=== PATIENT | male | born 1945 | race Caucasian/White ===

== ENCOUNTER 2021-08-15 01:11 | Inpatient (IN) | payer MEDICARE, OTHER ==
[~2021-08-15] VITALS: Ht 165.1 cm; Wt 115.2 kg
[~2021-08-15 01:11] MED LIST: ACETAMINOPHEN325 MG PO; AMITRIPTYLINE100 MG PO; BUSPIRONE HCL10 MG PO; CERTAGEN1 EACH PO; COL-RITE100 MG PO; COZAAR50 MG PO; DULERA 200 MCG8.8 GM INH; FEOSOL325 MG PO; FISH OIL 1,2001 EAC1 PO; FLOMAX0.4 MG PO; IMODIUM2 MG PO; K-DUR20 MEQ PO; LASIX40 MG PO; LAXATIVE OF CHOICE; LOPID600 MG PO; MEDROL 4MG DOSEP4 MG PO; MUCINEX 600MG600 MG PO; NORVASC 10MG TA10 MG PO; PERCOCET 5-3251 EACH PO; PRILOSEC20 MG PO; REQUIP4 MG PO; VENTOLIN HFA IN18 GM INH
[2021-08-15 02:03] LABS: BASOPHIL 0.2 % (0-2); EOSINOPHIL 1.1 % (0-7); HCT 30.6 % (42.0-52.0); HGB 9.5 g/dl (13.2-18.0); MCH 26.9 pg (25.0-31.0); MCV 86.7 fL (78.0-100.0); MPV 9.8 fL (6.0-9.5); NEUTROPHIL 85.1 % (41-80); NRBC 0; PLT 291 K/uL (150-400); RBC 3.53 M/uL (4.70-6.00); WBC 18.2 K/uL (4.0-10.5)
[2021-08-15 02:11] LABS: BILIRUBIN NEGATIVE (NEGATIVE); BLOOD TRACE-INTACT Ery/uL (NEGATIVE); CLARITY CLEAR (CLEAR); COLOR YELLOW (YELLOW); GLUCOSE (U) NORMAL (NORMAL); LEUKOCYTES NEGATIVE Leu/uL (NEGATIVE); NITRITE NEGATIVE (NEGATIVE); PROTEIN NEGATIVE (NEGATIVE); SPECIFIC GRAVITY 1.015 (1.001-1.030); UROBILINOGEN 0.2 mg/dL (0.2-1.0); pH 6.5 (5.0-9.0)
[2021-08-15 02:22] LABS: ALBUMIN 3.4 g/dL (3.4-5.0); BILIRUBIN - TOTAL 0.2 mg/dL (0.2-1.0); BUN/CREAT RATIO (CALC) 27.5 RATIO; CREATININE 1.53 mg/dL (0.67-1.17); GLOBULIN (CALCULATION) 3.6 g/dL; POTASSIUM 4.4 mmol/L (3.5-5.1)
[2021-08-15 02:25] LABS: LACTIC ACID 2.6 mmol/L (0.4-1.9)
[2021-08-15 02:39] LABS: CORONAVIRUS 2019 SARS-COV-2 NEGATIVE (NEGATIVE); INFLUENZA A NAA NEGATIVE (NEGATIVE)
[2021-08-15 09:14] LABS: HCT 31.2 % (42.0-52.0); HGB 9.5 g/dl (13.2-18.0); MCH 27.4 pg (25.0-31.0); MCHC 30.4 g/dL (32.0-36.0); MCV 89.9 fL (78.0-100.0); MPV 9.8 fL (6.0-9.5); RBC 3.47 M/uL (4.70-6.00); RDW 15.1 % (11.5-14.0); WBC 24.8 K/uL (4.0-10.5)
[2021-08-15 09:37] LABS: ALBUMIN 3.2 g/dL (3.4-5.0); BILIRUBIN - TOTAL 0.3 mg/dL (0.2-1.0); BUN/CREAT RATIO (CALC) 23.2 RATIO; CREATININE 1.68 mg/dL (0.67-1.17); GLOBULIN (CALCULATION) 3.7 g/dL; MAGNESIUM 2.1 mg/dL (1.8-2.4); PHOSPHORUS 3.9 mg/dL (2.6-4.7); TOTAL PROTEIN 6.9 g/dL (6.4-8.2)
[2021-08-16 07:00] LABS: BASOPHIL 0.4 % (0-2); EOSINOPHIL 3.1 % (0-7); HCT 30.2 % (42.0-52.0); LYMPHOCYTE 12.3 % (15-48); MCH 26.6 pg (25.0-31.0); MCHC 29.8 g/dL (32.0-36.0); MCV 89.3 fL (78.0-100.0); MONOCYTE 8.6 % (0-12); MPV 9.8 fL (6.0-9.5); NEUTROPHIL 75.1 % (41-80); NRBC 0; PLT 229 K/uL (150-400); RBC 3.38 M/uL (4.70-6.00); RDW 15.4 % (11.5-14.0); WBC 11.3 K/uL (4.0-10.5)
[2021-08-16 07:27] LABS: ALBUMIN 2.6 g/dL (3.4-5.0); BILIRUBIN - TOTAL 0.5 mg/dL (0.2-1.0); BUN/CREAT RATIO (CALC) 15.4 RATIO; CREATININE 1.49 mg/dL (0.67-1.17); GLOBULIN (CALCULATION) 3.4 g/dL; POTASSIUM 3.7 mmol/L (3.5-5.1)
[2021-08-16 15:25] LABS: BUN/CREAT RATIO (CALC) 14.4 RATIO; CREATININE 1.74 mg/dL (0.67-1.17); POTASSIUM 3.4 mmol/L (3.5-5.1)
[2021-08-17 05:38] LABS: HCT 26.6 % (42.0-52.0); HGB 8.1 g/dl (13.2-18.0); MCH 27.1 pg (25.0-31.0); MCHC 30.5 g/dL (32.0-36.0); MPV 10.2 fL (6.0-9.5); RBC 2.99 M/uL (4.70-6.00); RDW 15.5 % (11.5-14.0); WBC 11.7 K/uL (4.0-10.5)
[2021-08-17 06:08] LABS: BUN/CREAT RATIO (CALC) 14.7 RATIO; CREATININE 1.7 mg/dL (0.67-1.17); POTASSIUM 3.3 mmol/L (3.5-5.1); VANCOMYCIN, TROUGH 9.7 ug/mL (10-20)
[2021-08-18 04:10] LABS: HCT 25.6 % (42.0-52.0); MCH 27.4 pg (25.0-31.0); MCHC 31.3 g/dL (32.0-36.0); MCV 87.7 fL (78.0-100.0); RBC 2.92 M/uL (4.70-6.00); RDW 15.7 % (11.5-14.0); WBC 8.4 K/uL (4.0-10.5)
[2021-08-18 04:26] LABS: BUN/CREAT RATIO (CALC) 14.2 RATIO; CREATININE 1.69 mg/dL (0.67-1.17); POTASSIUM 3.4 mmol/L (3.5-5.1)
[2021-08-19 06:22] LABS: HCT 25.8 % (42.0-52.0); HGB 7.8 g/dl (13.2-18.0); MCH 26.8 pg (25.0-31.0); MCHC 30.2 g/dL (32.0-36.0); MCV 88.7 fL (78.0-100.0); MPV 10.3 fL (6.0-9.5); RBC 2.91 M/uL (4.70-6.00); RDW 15.9 % (11.5-14.0); WBC 8.9 K/uL (4.0-10.5)
[2021-08-19 06:45] LABS: BUN/CREAT RATIO (CALC) 12.8 RATIO; CREATININE 2.03 mg/dL (0.67-1.17)
[2021-08-19 13:26] LABS: CHOLESTEROL 142 mg/dL (<200); HDL 38 mg/dL (40-60); LDL - DIRECT 84 mg/dL (<100); TRIGLYCERIDES 201 mg/dL (<150)
[2021-08-20 04:58] LABS: HCT 24.4 % (42.0-52.0); MCH 26.4 pg (25.0-31.0); MCHC 29.9 g/dL (32.0-36.0); MCV 88.4 fL (78.0-100.0); MPV 10.1 fL (6.0-9.5); RBC 2.76 M/uL (4.70-6.00); RDW 16.2 % (11.5-14.0); WBC 8.6 K/uL (4.0-10.5)
[2021-08-20 05:01] LABS: HGB 7.3 g/dl (13.2-18.0)
[2021-08-20 05:24] LABS: BUN/CREAT RATIO (CALC) 16.4 RATIO; CREATININE 2.07 mg/dL (0.67-1.17); POTASSIUM 3.7 mmol/L (3.5-5.1)
[2021-08-20 05:27] LABS: VANCOMYCIN, TROUGH 24.8 ug/mL (10-20)
[2021-08-21 05:10] LABS: BASOPHIL 0.2 % (0-2); EOSINOPHIL 2.6 % (0-7); HCT 26.1 % (42.0-52.0); HGB 7.7 g/dl (13.2-18.0); LYMPHOCYTE 7.7 % (15-48); MCH 26.1 pg (25.0-31.0); MCHC 29.5 g/dL (32.0-36.0); MCV 88.5 fL (78.0-100.0); MONOCYTE 7.4 % (0-12); MPV 9.9 fL (6.0-9.5); NEUTROPHIL 80.2 % (41-80); NRBC 0.2; PLT 207 K/uL (150-400); RBC 2.95 M/uL (4.70-6.00); RDW 16.5 % (11.5-14.0); WBC 13.2 K/uL (4.0-10.5)
[2021-08-21 06:45] LABS: ALBUMIN 2.3 g/dL (3.4-5.0); BILIRUBIN - TOTAL 0.4 mg/dL (0.2-1.0); BUN/CREAT RATIO (CALC) 20.9 RATIO; CREATININE 2.01 mg/dL (0.67-1.17); GLOBULIN (CALCULATION) 3.2 g/dL; POTASSIUM 3.9 mmol/L (3.5-5.1); TOTAL PROTEIN 5.5 g/dL (6.4-8.2)
[2021-08-21 15:47] LABS: BUN/CREAT RATIO (CALC) 21.4 RATIO; CREATININE 1.96 mg/dL (0.67-1.17); POTASSIUM 3.4 mmol/L (3.5-5.1)
[2021-08-21] MEDS ORDERED: IPRAT-ALBUT 0.5-3 ML INH (19:25)
[2021-08-21] MEDS ORDERED: MELOXICAM15 MG PO (19:26)
[2021-08-21] MEDS ORDERED: PRINIVIL10 MG PO (19:26)
[2021-08-21] MEDS ORDERED: METFORMIN HCL500 MG PO (19:27)
[2021-08-21] MEDS ORDERED: METOLAZONE 5MG T5 MG PO (19:28)
[2021-08-21] MEDS ORDERED: CRESTOR40 MG PO (19:29)
[2021-08-21] MEDS ORDERED: SILVADENE20 G1 TOP (19:29)
[2021-08-21] MEDS ORDERED: VITAMIN D21250 MCG PO (19:31)
[2021-08-21] MEDS ORDERED: ZYRTEC10 M3 PO (19:32)
[2021-08-22 05:56] LABS: BASOPHIL 0.2 % (0-2); EOSINOPHIL 1.1 % (0-7); HCT 25.2 % (42.0-52.0); HGB 7.5 g/dl (13.2-18.0); MCH 25.8 pg (25.0-31.0); MCHC 29.8 g/dL (32.0-36.0); MCV 86.6 fL (78.0-100.0); MONOCYTE 8.2 % (0-12); MPV 10.5 fL (6.0-9.5); NEUTROPHIL 78.2 % (41-80); NRBC 0.4; PLT 220 K/uL (150-400); RBC 2.91 M/uL (4.70-6.00); RDW 16.5 % (11.5-14.0); WBC 13.6 K/uL (4.0-10.5)
[2021-08-22 06:12] LABS: BUN 49 mg/dL (7-18); BUN/CREAT RATIO (CALC) 25.7 RATIO; CHLORIDE 106 mmol/L (98-107); CO2 (BICARBONATE) 27 mmol/L (21-32); CREATININE 1.91 mg/dL (0.67-1.17); GLUCOSE 126 mg/dL (74-106); POTASSIUM 3.6 mmol/L (3.5-5.1)
[2021-08-22 06:19] LABS: C-REACTIVE PROTEIN > 18.00 mg/dL (<=0.90)
[2021-08-22 06:20] LABS: C-REACTIVE PROTEIN < 18.00 mg/dL (<=0.90)
[2021-08-22 18:49] LABS: BUN/CREAT RATIO (CALC) 28.5 RATIO; CREATININE 1.79 mg/dL (0.67-1.17); POTASSIUM 3.5 mmol/L (3.5-5.1)
[2021-08-23 00:45] LABS: BASOPHIL 0.3 % (0-2); EOSINOPHIL 3.8 % (0-7); HGB 7.8 g/dl (13.2-18.0); LYMPHOCYTE 8.6 % (15-48); MCH 26.3 pg (25.0-31.0); MCV 87.5 fL (78.0-100.0); MONOCYTE 9.8 % (0-12); MPV 10.6 fL (6.0-9.5); NEUTROPHIL 71.3 % (41-80); NRBC 0.6; PLT 219 K/uL (150-400); RBC 2.97 M/uL (4.70-6.00); RDW 16.5 % (11.5-14.0)
[2021-08-23 00:50] LABS: WBC 12.3 K/uL (4.0-10.5)
[2021-08-23 01:10] LABS: BUN/CREAT RATIO (CALC) 29.7 RATIO; CREATININE 1.75 mg/dL (0.67-1.17); MAGNESIUM 2.4 mg/dL (1.8-2.4); PHOSPHORUS 4.5 mg/dL (2.6-4.7); POTASSIUM 3.5 mmol/L (3.5-5.1)
[2021-08-24 04:10] LABS: BASOPHIL 0.3 % (0-2); EOSINOPHIL 0.3 % (0-7); HCT 24.1 % (42.0-52.0); HGB 7.4 g/dl (13.2-18.0); LYMPHOCYTE 9.7 % (15-48); MCH 25.8 pg (25.0-31.0); MCHC 30.7 g/dL (32.0-36.0); MONOCYTE 9.8 % (0-12); MPV 10.8 fL (6.0-9.5); NEUTROPHIL 72.2 % (41-80); PLT 286 K/uL (150-400); RBC 2.87 M/uL (4.70-6.00); RDW 16.6 % (11.5-14.0); WBC 11.8 K/uL (4.0-10.5)
[2021-08-24 04:49] LABS: BUN 35 mg/dL (7-18); CHLORIDE 110 mmol/L (98-107); CO2 (BICARBONATE) 20 mmol/L (21-32); CREATININE 0.66 mg/dL (0.67-1.17); GLUCOSE 115 mg/dL (74-106); POTASSIUM 3.6 mmol/L (3.5-5.1)
[2021-08-24 04:50] LABS: C-REACTIVE PROTEIN > 18.00 mg/dL (<=0.90)
[2021-08-24 10:03] LABS: CREATININE 1.5 mg/dL (0.67-1.17); POTASSIUM 3.1 mmol/L (3.5-5.1)
[2021-08-25 05:16] LABS: BASOPHIL 0.2 % (0-2); EOSINOPHIL 0.3 % (0-7); HCT 26.3 % (42.0-52.0); MCH 25.6 pg (25.0-31.0); MCHC 30.4 g/dL (32.0-36.0); MONOCYTE 9.6 % (0-12); MPV 10.4 fL (6.0-9.5); PLT 310 K/uL (150-400); RBC 3.13 M/uL (4.70-6.00); RDW 16.8 % (11.5-14.0); WBC 12.5 K/uL (4.0-10.5)
[2021-08-25 05:17] LABS: NEUTROPHIL 70.5 % (41-80)
[2021-08-25 05:39] LABS: BUN/CREAT RATIO (CALC) 41.2 RATIO; CREATININE 1.48 mg/dL (0.67-1.17); POTASSIUM 3.4 mmol/L (3.5-5.1)
== END 2021-08-28 18:45 | DRG 870 ==
LOC: FER 01:11 → FICU 15:37 → FTCU 08-25 19:22 → FMS 08-26 19:22
PROVIDERS: Emergency Medicine; Family Medicine; Hospitalist; Internal Medicine; ADMIT Internal Medicine
PROC: 0BH17EZ Insertion of Endotracheal Airway into Trachea, Via Natural or Artificial Opening (ICD-10-PCS; principal; 2021-08-15)
PROC: 5A1955Z Respiratory Ventilation, Greater than 96 Consecutive Hours (ICD-10-PCS; 2021-08-15)
PROC: 06HY33Z Insertion of Infusion Device into Lower Vein, Percutaneous Approach (ICD-10-PCS; 2021-08-15)
PROC: B54BZZA Ultrasonography of Right Lower Extremity Veins, Guidance (ICD-10-PCS; 2021-08-15)
PROC: 3E043XZ Introduction of Vasopressor into Central Vein, Percutaneous Approach (ICD-10-PCS; 2021-08-15)
PROC: 0HBMXZZ Excision of Right Foot Skin, External Approach (ICD-10-PCS; 2021-08-16)
DX: A41.9 Sepsis, unspecified organism (principal); R65.21 Severe sepsis with septic shock; I21.A1 Myocardial infarction type 2; I26.99 Other pulmonary embolism without acute cor pulmonale; J96.01 Acute respiratory failure with hypoxia; J18.9 Pneumonia, unspecified organism; N17.0 Acute kidney failure with tubular necrosis; L02.611 Cutaneous abscess of right foot; L03.115 Cellulitis of right lower limb; I13.0 Hypertensive heart and chronic kidney disease with heart failure and stage 1 through stage 4 chronic kidney disease, or unspecified chronic kidney disease; I50.30 Unspecified diastolic (congestive) heart failure; E87.3 Alkalosis; G93.1 Anoxic brain damage, not elsewhere classified; J44.0 Chronic obstructive pulmonary disease with (acute) lower respiratory infection; Z20.822 Contact with and (suspected) exposure to COVID-19; Z66 Do not resuscitate; Z51.5 Encounter for palliative care; N18.2 Chronic kidney disease, stage 2 (mild); E11.621 Type 2 diabetes mellitus with foot ulcer; L97.519 Non-pressure chronic ulcer of other part of right foot with unspecified severity; M14.671 Charcot's joint, right ankle and foot; D50.9 Iron deficiency anemia, unspecified; E66.01 Morbid (severe) obesity due to excess calories; E78.5 Hyperlipidemia, unspecified; K59.03 Drug induced constipation; E64.8 Sequelae of other nutritional deficiencies; Z90.49 Acquired absence of other specified parts of digestive tract; Z90.89 Acquired absence of other organs; Z98.890 Other specified postprocedural states
CPT/HCPCS: 36415; 36600; 70450; 71045; 71250; 74018; 76881; 80048; 80053; 80061; 80202; 81001; 82607; 82728; 82803; 82962; 83036; 83540; 83550; 83605; 83735; 83880; 84100; 84145; 84484; 85025; 85379; 86140; 86850; 86900; 86901; 87040; 87070; 87075; 87077; 87088; 87186; 87205; 93005; 94002; 96365; 96366; 96367; 96372; 96375; 96376; C9113; J0461; J1265; J1644; J1885; J1940; J1956; J2060; J2185; J2250; J2270; J2370; J2543; J2704; J3010; J3370; J3480; J3486; J7030; J7040; J7050; J7060; J7121; P9046; P9047; U0002